=== PATIENT | female | born 1965 | race Caucasian/White ===

== ENCOUNTER → 2023-06-27 | Outpatient (CLI) | payer MEDICAID, SELFPAY ==
--- NOTE | 2023-06-27 09:47 | BI_ITS ---
MAMMOGRAPHY - BILATERAL SCREENING REASON FOR EXAM: Female, 58 years old. Routine annual screening examination. PERTINENT HISTORY: Non-contributory. History of prior left breast biopsy. TECHNIQUE: Digital bilateral breast gerard (3D mammographic acquisition) in the CC and MLO projections. 2-D mediolateral oblique (MLO) and craniocaudad (CC) views of both breasts were obtained. CAD: Full Field Digital Mammography with Computer Added Detection was performed. COMPARISON: Comparison is made with prior outside examination March 26, 2019. FINDINGS: Breast Composition: The breasts are heterogeneously dense, which may obscure small masses. There are no dominant masses or suspicious calcifications. A tissue clip marker is seen within the tiny nodular density in the medial retroareolar region of the left breast. The nodular density has decreased in size as compared to prior study. Stable small benign-appearing bilateral axillary lymph nodes. No other significant abnormalities are identified. There has been no significant change since the prior study. BI/SCRN MAMM (CAD)W/GERARD BILAT IMPRESSION: Stable bilateral screening mammogram. Yearly follow-up mammogram recommended. (A) ASSESSMENT CATEGORY: BIRADS Category 2: Benign. A letter regarding these results will be sent to the patient by the facility within 30 days. Approximately 10% of breast cancers are not detected by mammography. A normal mammogram should not delay biopsy of a clinically suspicious abnormality. [id number] Electronically Signed: Agustín Bear MD at 10:54 EDT ,
== END | disposition home or self-care (01) ==
PROVIDERS: PCP Internal Medicine; Referring Provider Internal Medicine; Visit Provider Internal Medicine
DX: Z00.00 Encounter for general adult medical examination without abnormal findings (principal); Z12.31 Encounter for screening mammogram for malignant neoplasm of breast; E55.9 Vitamin D deficiency, unspecified
CPT/HCPCS: 36415; 77063; 77067; 80053; 80061; 82306; 85025

== ENCOUNTER → 2023-06-27 | Outpatient (CLI) | payer MEDICAID, SELFPAY ==
[2023-06-27 10:29] LABS: Absolute Lymphocyte Count 2.77 X10^3/uL (0.83-4.51); Absolute Neutrophil Count 3.7 X10^3/uL (2.0-7.7); Basophil# 0.08 X10^3/uL; Basophil% 1.1 % (0-1); Eosinophil# 0.18 X10^3/uL; Eosinophils% 2.5 % (0-5); Hematocrit 44.4 % (37-47); Hemoglobin 14.7 g/dL (12.0-15.0); Lymphocyte # 2.77 X10^3/ul (0.83-4.51); Lymphocyte % 37.7 % (19-41); Mean Corp Hgb Conc 33.1 g/dL (32-36); Mean Corpuscular Hgb 30.5 pg (27.0-32.0); Mean Corpuscular Volume 92.1 fL (81-99); Mean Platelet Vol. 11.1 fl (6.2-12.0); Monocyte# 0.55 X10^3/uL; Monocyte% 7.5 % (0-10); NRBC Flagged by Analyzer 0 % (0-5); Neutrophil # 3.74 X10^3/uL (2.7-7.7); Neutrophil % 50.9 % (47-70); Platelet Count 209 K/mm3 (150-450); RBC Distribution Width CV 12.7 % (11.6-14.6); RBC Distribution Width SD 43.1 fl (35.1-43.9); Red Blood Count 4.82 M/mm3 (4.2-5.4); White Blood Count 7.3 K/mm3 (4.4-11.0)
[2023-06-27 10:49] LABS: Vitamin D,25 Hydroxy 37.9 ng/mL
[2023-06-27 11:17] LABS: AST(SGOT) 19 U/L (15-37); Alanine Aminotransfer ALT/SGPT 25 U/L (13-56); Alkaline Phosphatase 91 U/L (45-117); Anion Gap 8 (5-15); BUN 13 mg/dL (7-18); BUN/Creat Ratio 15.1 RATIO (10-20); Calcium,Total 9.5 mg/dL (8.5-10.1); Chloride 103 mmol/L (98-107); Cholesterol 259 mg/dL (200); Creatinine, Serum 0.86 mg/dL (0.55-1.02); EST Glomerular Filtration Rate 72 mL/min (>60); Est Glom Filt Rate - Afr Amer 88 mL/min (>60); Globulin 4.1 g/dL (2.2-4.2); Glucose 95 mg/dL (74-106); High Density Lipoprotein 82 mg/dL; Protein, Total 8.1 g/dL (6.4-8.2); Sodium Level 135 mmol/L (136-145); Triglycerides 110 mg/dL; Very Low Density Lipoprotein 22 mg/dL (5-40)
== END | disposition home or self-care (01) ==
PROVIDERS: PCP Internal Medicine; Referring Provider Internal Medicine; Visit Provider Internal Medicine
DX: Z00.00 Encounter for general adult medical examination without abnormal findings (principal); E55.9 Vitamin D deficiency, unspecified
CPT/HCPCS: 36415; 80053; 80061; 82306; 85025

== ENCOUNTER 2023-08-29 18:00 | Emergency (ER) | payer MEDICAID, SELFPAY ==
[2023-08-29 18:04] VITALS: BP 157/87; PULSE 91; RESP 18; TEMP 36.8; O2SAT 100; BMI 32.8
--- NOTE | 2023-08-29 18:52 | CT_ITS ---
EXAMINATION : Head CT w/out contrast HISTORY : Injury/Pain COMPARISON : None. TECHNIQUE : Multiple contiguous axial images were obtained from the skull base to the vertex without intravenous contrast. A radiation dose optimization technique was used for this scan. FINDINGS : The ventricles and sulci are normal in size. There is no evidence for acute intracranial hemorrhage, mass effect, or midline shift. There is no extra-axial fluid collection. There is normal wood-white differentiation, without CT evidence of acute ischemia or infarct. The skull base and calvarium are unremarkable. The orbits are unremarkable. The paranasal sinuses are clear. The mastoid air cells are well-aerated. The soft tissues are unremarkable. CT/Brain/Head without Contrast IMPRESSION: No acute intracranial abnormality. Electronically Signed: Darryl Srivastava MD at 19:49 EDT ,
--- NOTE | 2023-08-29 18:52 | CT_ITS ---
INDICATION: Injury/Pain EXAMINATION: CT CERVICAL SPINE - CT Spine Cervical W/O Contrast Injection TECHNIQUE: Helically acquired images were obtained of the cervical spine. 2D reformatted images were reviewed. A radiation dose optimization technique was used for this scan. IV Contrast dosage and agent: None. COMPARISON: None. FINDINGS: VERTEBRAE: No fracture or traumatic subluxation. No discrete lytic or blastic abnormality. Normal alignment. Normal craniocervical junction and cervicothoracic junction. DISCS and SPINAL CANAL: Mild to moderate multilevel degenerative disc disease and spondylosis. No critical stenosis. NECK SOFT TISSUES: No prevertebral soft tissue swelling. There is no cervical adenopathy. LUNG APICES: Clear. CT/Spine Cervical without Contras IMPRESSION: No evidence of acute cervical spinal fracture or spondylolisthesis. Mild to moderate multilevel degenerative disc disease and spondylosis. Electronically Signed: Darryl Srivastava MD at 19:52 EDT ,
[2023-08-29] MEDS: Morphine 4 MG/ML Syringe IV (19:11)
[2023-08-29] MEDS: Diphth,Pertuss(Acell),Tet Vac 0.5 ML Vial IM (19:11)
--- NOTE | 2023-08-29 19:40 | RAD_ITS ---
INDICATION: Injury/Pain EXAMINATION/TECHNIQUE: X-RAY - RIGHT XR Knee Complete 4 Views or More COMPARISON: None. FINDINGS: No acute fracture or malalignment. Mild, patellofemoral compartment predominant, tricompartmental joint space narrowing and osteophytosis. No joint effusion. The soft tissues are unremarkable. RAD/Knee 4 or More Views IMPRESSION: No acute traumatic abnormalities. Mild, patellofemoral compartment predominant, tricompartmental degenerative arthrosis of the knee. Electronically Signed: Darryl Srivastava MD at 20:07 EDT ,
--- NOTE | 2023-08-29 19:40 | RAD_ITS ---
INDICATION: Injury/Pain EXAMINATION/TECHNIQUE: X-RAY - LEFT XR Wrist Min 3 Views COMPARISON: None. FINDINGS: Questionable old fracture deformity of the distal radius. No definite acute fracture. No blastic or lytic lesions. Mild degenerative changes of the radiocarpal and first carpometacarpal joint. Mild soft tissue swelling of the wrist. RAD/Wrist min 3 Views IMPRESSION: Questionable old fracture deformity of the distal radius. No definite acute fracture. If pain persists, recommend repeat radiographs in 5-7 days or consider wrist CT. Mild degenerative changes of the radiocarpal and first carpometacarpal joint. Electronically Signed: Darryl Srivastava MD at 20:05 EDT ,
--- NOTE | 2023-08-29 19:40 | RAD_ITS ---
INDICATION: Trauma EXAMINATION/TECHNIQUE: X-RAY - XR Chest 2 Views COMPARISON: None. FINDINGS: Questionable mild bronchiectasis/bronchial wall thickening. The lungs are otherwise clear. The cardiomediastinal silhouette is unremarkable. No pleural effusion or pneumothorax. Degenerative changes of the thoracic spine. RAD/Chest PA and Lateral IMPRESSION: No acute traumatic abnormalities. Questionable mild bronchiectasis/bronchial wall thickening could represent small airways disease. Electronically Signed: Darryl Srivastava MD at 20:01 EDT ,
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
[2023-08-29 21:22] VITALS: BP 128/74; PULSE 81; RESP 16; O2SAT 99
== END 2023-08-29 21:23 | disposition home or self-care (01) ==
PROVIDERS: Emergency Provider Emergency Medicine; PCP Internal Medicine; Visit Provider Emergency Medicine
DX: S09.90XA Unspecified injury of head, initial encounter (principal); S16.1XXA Strain of muscle, fascia and tendon at neck level, initial encounter; S60.812A Abrasion of left wrist, initial encounter; F17.210 Nicotine dependence, cigarettes, uncomplicated; Y92.410 Unspecified street and highway as the place of occurrence of the external cause; S80.01XA Contusion of right knee, initial encounter; V43.52XA Car driver injured in collision with other type car in traffic accident, initial encounter; W22.10XA Striking against or struck by unspecified automobile airbag, initial encounter; Z23 Encounter for immunization
CPT/HCPCS: 70450; 71046; 72125; 73110; 73564; 90715; 96374; 99283; A4216

== ENCOUNTER → 2023-09-05 | Outpatient (CLI) | payer MEDICAID, SELFPAY ==
--- NOTE | 2023-09-05 14:16 | VDLE_ITS ---
Reason For Study: Right leg swelling RIGHT LEFT GSV is normal. CFV is compressible, spontaneous, phasic, CFV is compressible, spontaneous, phasic, competent, and demonstrates normal competent and demonstrates normal augmentation. augmentation. FV is compressible, spontaneous, phasic, competent and demonstrates normal augmentation. POP V is compressible, spontaneous, phasic, competent and demonstrates normal augmentation. T/P Trunk is compressible. PTV is compressible. RT PerV is compressible. Procedure This is a venous duplex using B-mode, color flow and spectral Doppler. Exam performed in department. A preliminary report was called and/or faxed to Dr. Tse. VL/Venous Duplex US, Unilateral Interpretation Summary Deep veins of the right lower extremity are patent and compressible segmentally . There is no evidence of right lower extremity deep vein thrombosis. The right [place] us vein appears patent and compressible segmentally. Ordering Physician: Westley Tse Referring Physician: Westley Tse Performed By: Siobhan Valladares RVT
== END | disposition home or self-care (01) ==
LOC: CVS 14:16
PROVIDERS: PCP Internal Medicine; Referring Provider Internal Medicine; Visit Provider Internal Medicine
DX: M79.89 Other specified soft tissue disorders (principal)
CPT/HCPCS: 93971

== ENCOUNTER → 2023-09-23 | Outpatient (CLI) | payer MEDICAID, SELFPAY | END | disposition home or self-care (01) | LOC: PSN 08:22 | PROVIDERS: PCP Internal Medicine; Referring Provider Internal Medicine; Visit Provider Internal Medicine | DX: R00.2 Palpitations (principal) | CPT/HCPCS: 93225; 93226 ==

== ENCOUNTER → 2023-10-09 | Outpatient (CLI) | payer MEDICAID, SELFPAY ==
[2023-10-09 12:19] LABS: Absolute Lymphocyte Count 2.61 X10^3/uL (0.83-4.51); Absolute Neutrophil Count 5.6 X10^3/uL (2.0-7.7); Basophil# 0.07 X10^3/uL; Basophil% 0.8 % (0-1); Eosinophil# 0.17 X10^3/uL; Eosinophils% 1.9 % (0-5); Hematocrit 46.8 % (37-47); Hemoglobin 14.8 g/dL (12.0-15.0); Lymphocyte # 2.61 X10^3/ul (0.83-4.51); Lymphocyte % 28.6 % (19-41); Mean Corp Hgb Conc 31.6 g/dL (32-36); Mean Corpuscular Hgb 29.5 pg (27.0-32.0); Mean Corpuscular Volume 93.2 fL (81-99); Mean Platelet Vol. 12.6 fl (6.2-12.0); Monocyte# 0.65 X10^3/uL; Monocyte% 7.1 % (0-10); NRBC Flagged by Analyzer 0 % (0-5); Neutrophil % 61.2 % (47-70); Platelet Count 243 K/mm3 (150-450); RBC Distribution Width CV 13.3 % (11.6-14.6); RBC Distribution Width SD 45.7 fl (35.1-43.9); Red Blood Count 5.02 M/mm3 (4.2-5.4); White Blood Count 9.1 K/mm3 (4.4-11.0)
[2023-10-09 12:47] LABS: AST(SGOT) 18 U/L (15-37); Alanine Aminotransfer ALT/SGPT 29 U/L (13-56); Albumin, Serum 4.2 g/dL (3.2-5.0); Alkaline Phosphatase 105 U/L (45-117); Anion Gap 3 (5-15); BUN 14 mg/dL (7-18); BUN/Creat Ratio 14.9 RATIO (10-20); Chloride 104 mmol/L (98-107); Creatinine, Serum 0.94 mg/dL (0.55-1.02); EST Glomerular Filtration Rate 65 mL/min (>60); Est Glom Filt Rate - Afr Amer 79 mL/min (>60); Globulin 4.3 g/dL (2.2-4.2); Glucose 88 mg/dL (74-106); Potassium 4.5 mmol/L (3.5-5.1); Protein, Total 8.5 g/dL (6.4-8.2); Sodium Level 136 mmol/L (136-145); T4 Free Direct 1.04 ng/dL (0.76-1.46); Thyroid Stim Hormone (TSH) 2.96 uIU/mL (0.358-3.74)
== END | disposition home or self-care (01) ==
LOC: BIMLAB 09:44
PROVIDERS: PCP Internal Medicine; Referring Provider Internal Medicine; Visit Provider Internal Medicine
DX: R00.2 Palpitations (principal); S06.0XAA Concussion with loss of consciousness status unknown, initial encounter
CPT/HCPCS: 36415; 80053; 84439; 84443; 85025

== ENCOUNTER → 2023-12-25 | Outpatient (CLI) | payer MEDICAID, SELFPAY ==
[2023-12-31 11:09] LABS: HPV APTIMA, High Risk Negative (Negative)
== END | disposition home or self-care (01) ==
LOC: LABSPEC 16:26
PROVIDERS: PCP Internal Medicine; Referring Provider Nurse Practitioner Women's Health; Visit Provider Nurse Practitioner Women's Health
DX: Z12.4 Encounter for screening for malignant neoplasm of cervix (principal)
CPT/HCPCS: 87624; 88175; G0145

== ENCOUNTER → 2024-06-29 | Outpatient (CLI) | payer MEDICAID, SELFPAY ==
[2024-06-29 12:17] LABS: Absolute Neutrophil Count 3.7 X10^3/uL (2.0-7.7); Basophil# 0.06 X10^3/uL; Basophil% 0.8 % (0-1); Eosinophil# 0.17 X10^3/uL; Eosinophils% 2.4 % (0-5); Hematocrit 44.9 % (37-47); Hemoglobin 14.7 g/dL (12.0-15.0); Lymphocyte % 36.7 % (19-41); Mean Corp Hgb Conc 32.7 g/dL (32-36); Mean Corpuscular Hgb 29.5 pg (27.0-32.0); Mean Corpuscular Volume 90.2 fL (81-99); Mean Platelet Vol. 12.5 fl (6.2-12.0); Monocyte# 0.55 X10^3/uL; Monocyte% 7.8 % (0-10); NRBC Flagged by Analyzer 0 % (0-5); Neutrophil # 3.68 X10^3/uL (2.7-7.7); Platelet Count 207 K/mm3 (150-450); RBC Distribution Width CV 13.3 % (11.6-14.6); Red Blood Count 4.98 M/mm3 (4.2-5.4); White Blood Count 7.1 K/mm3 (4.4-11.0)
[2024-06-29 12:32] LABS: AST(SGOT) 22 U/L (15-37); Alanine Aminotransfer ALT/SGPT 26 U/L (13-56); Albumin, Serum 3.9 g/dL (3.2-5.0); Alkaline Phosphatase 91 U/L (45-117); Anion Gap 5 (5-15); BUN 12 mg/dL (7-18); BUN/Creat Ratio 14.6 RATIO (10-20); Calcium,Total 9.9 mg/dL (8.5-10.1); Chloride 104 mmol/L (98-107); Cholesterol 245 mg/dL (200); Creatinine, Serum 0.82 mg/dL (0.55-1.02); EST Glomerular Filtration Rate 76 mL/min (>60); Est Glom Filt Rate - Afr Amer 92 mL/min (>60); Globulin 4.1 g/dL (2.2-4.2); Glucose 97 mg/dL (74-106); High Density Lipoprotein 74 mg/dL; Potassium 4.1 mmol/L (3.5-5.1); Sodium Level 136 mmol/L (136-145); Triglycerides 93 mg/dL; Very Low Density Lipoprotein 19 mg/dL (5-40)
== END | disposition home or self-care (01) ==
LOC: BIMLAB 09:44
PROVIDERS: PCP Internal Medicine; Referring Provider Internal Medicine; Visit Provider Internal Medicine
DX: Z00.00 Encounter for general adult medical examination without abnormal findings (principal)
CPT/HCPCS: 36415; 80053; 80061; 85025

== ENCOUNTER → 2024-07-15 | Outpatient (CLI) | payer MEDICAID, SELFPAY ==
--- NOTE | 2024-07-15 12:19 | BI_ITS ---
MAMMOGRAPHY - BILATERAL SCREENING REASON FOR EXAM: Female, 59 years old. Routine annual screening examination. PERTINENT HISTORY: Non-contributory. Prior left breast biopsy. TECHNIQUE: Digital bilateral breast gerard (3D mammographic acquisition) in the CC and MLO projections. 2-D mediolateral oblique (MLO) and craniocaudad (CC) views of both breasts were obtained. CAD: Full Field Digital Mammography with Computer Added Detection was performed. COMPARISON: Comparison is made with prior examination dated June 27, 2023. FINDINGS: Breast Composition: The breasts are heterogeneously dense, which may obscure small masses. There are no dominant masses or suspicious calcifications. Stable well-defined 4.5 mm nodule in the deep upper lateral aspect of the right breast suggestive of a small lymph node. Once again, a tissue clip marker is seen in the slightly inferior anterior medial aspect of the left breast. No other significant abnormalities are identified. There has been no significant change since the prior study. BI/SCRN MAMM (CAD)W/GERARD BILAT IMPRESSION: Stable bilateral screening mammogram. Yearly follow-up mammogram recommended. (A) ASSESSMENT CATEGORY: BIRADS Category 2: Benign. A letter regarding these results will be sent to the patient by the facility within 30 days. Approximately 10% of breast cancers are not detected by mammography. A normal mammogram should not delay biopsy of a clinically suspicious abnormality. [id number] Electronically Signed: Agustín Bear MD at 15:08 EDT ,
--- NOTE | 2024-07-15 12:19 | BD_ITS ---
STUDY: DUAL ENERGY X-RAY ABSORPTIOMETRY / DXA REASON FOR EXAM: Female, 59 years old. Post Menopausal TECHNIQUE: Bone Mineral Density (BMD) measurements of lumbar spine and bilateral hips were obtained. COMPARISON: None. FINDINGS: Lumbar Spine (L1-L4): g/cm2 (1.159) / T-score (1.0) / Z-score (2.2) Findings are suggestive of normal bone density with a low fracture risk. Left Femur Total: g/cm2 (1.084) / T-score (1.2) / Z-score (2.0) Left Femoral Neck: g/cm2 (0.836) / T-score (-0.1) / Z-score (1.0) Right Femur Total: g/cm2 (1.066) / T-score (1.0) / Z-score (1.8) Right Femoral Neck: g/cm2 (0.815) / T-score (-0.3) / Z-score (0.8) BD/Dexa Bone Density Study IMPRESSION: The patient is considered normal as outlined below according to World Phil Organization (WHO) criteria with a low fracture risk. Reference Information: The T-score is the number of standard deviations above or below the standard which is normal for young adults at their peak bone mineral density. The World Health Organization (WHO) interprets the T-scores as follows: Above -1 Normal bone density Between -1 and -2.5 Osteopenia Equal to / or below -2.5 Osteoporosis As a practical clinical guideline, osteopenia may be graded as follows: Mild -1 through -1.5 Moderate -1.6 through -2.0 Severe -2.1 through -2.4 The Z-score is the number of standard deviations above or below age-matched controls. A Z-score of less than -1.5 would be considered abnormal. References: 1. NIH Osteoporosis and Related Bone Diseases www osteo.org 2. International Society for Clinical Densitometry www iscd.org 3. National Osteoporosis Foundation www nof.org Electronically Signed: Agustín Bear MD at 11:22 EDT ,
== END | disposition home or self-care (01) ==
LOC: OPBD 12:19
PROVIDERS: PCP Internal Medicine; Referring Provider Internal Medicine; Visit Provider Internal Medicine
DX: Z12.31 Encounter for screening mammogram for malignant neoplasm of breast (principal); Z78.0 Asymptomatic menopausal state
CPT/HCPCS: 77063; 77067; 77080

== ENCOUNTER 2024-08-27 09:19 | Day surgery (SDC) | payer MEDICAID, SELFPAY ==
--- NOTE | 2024-08-27 09:32 | PRE.ANES_ITS ---
ASA Classification* ASA Classification ASA Classification: 2 Assessment & Plan Anesthesia* Anesthesia Assessment Anesthesia Assessment: Discussed sedation and/or anesthesia options, risks, benefits, and alternatives with patient/parents/legal guardian/POA. Questions invited. The patient/parents/legal guardian/POA seems to understand and agrees to proceed with anesthesia plan. Reviewed the physical assessment, medical history, allergy history and patient home medications list prior to surgery/procedure/anesthetic and documented any changes. Performed airway and anesthesia risk assessments. Anesthesia Type Anesthesia Type: MAC (see written pre anesthesia record for full assessment) Anesthesia Focused Assessment* Airway Assessment Mouth opens: >3 cm Mallampati Score: II Focused Labs Anesthesia Preop lab: CBC WBC 7.1 K/mm3 (4.4-11.0) 06/29/24 09:44 RBC 4.98 M/mm3 (4.2-5.4) 06/29/24 09:44 Hgb 14.7 g/dL (12.0-15.0) 06/29/24 09:44 Hct 44.9 % (37-47) 06/29/24 09:44 Plt Count 207 K/mm3 (150-450) 06/29/24 09:44 CHEMISTRY Potassium 4.1 mmol/L (3.5-5.1) 06/29/24 09:44 Sodium 136 mmol/L (136-145) 06/29/24 09:44 BUN 12 mg/dL (7-18) 06/29/24 09:44 Creatinine 0.82 mg/dL (0.55-1.02) 06/29/24 09:44 Glucose 97 mg/dL (74-106) 06/29/24 09:44 TSH 2.96 uIU/mL (0.358-3.74) 10/09/23 09:44 COAG Pre-Assessment Diagnosis/Proposed Procedure Planned Operative Procedure(s): COLONOSCOPY-OA Anesthesia History Anesthesia History - registered occupational therapist: Anesthesia History - registered occupational therapist Hx Hospitalization No 08/24/24 10:36 Any Problems With Anesthesia Yes: N&V 08/24/24 10:36 Cholinesterase deficiency No 08/24/24 10:36 You/Your Family Experience No 08/24/24 10:36 fever (hyperthermia) with Relationship Recent Exposure to Contagious Disease Does patient have nerve No 08/24/24 10:36 stimulator Patient instructed to have device shut off --Does patient have Pacemaker or ICD? When Was Last Pacemaker Check QUESTION #4 FULL TEXT: You/Your Family Experience fever (hyperthermia) with Anesthesia Last Oral Intake Last Oral intake: Last Oral Intake NPO since Meds taken in AM with sips of water? Meds patient instructed to take am of surgery PONV PONV - registered occupational therapist: PONV - registered occupational therapist Female Yes 08/24/24 10:36 HX of Motion Sickness No 08/24/24 10:36 HX of N/V After Surgery No 08/24/24 10:36 Non-Smoker Yes 08/24/24 10:36 Duration of Surgery greater No 08/24/24 10:36 than 60 minutes Number of Risk Factors 2 08/24/24 10:36 PONV Score Moderate Risk 08/24/24 10:36 Height & Weight Height & Weight: Anesthesia: Height & Weight Height 5 ft 3 in 07/17/24 16:16 Respiratory Assessment Respiratory Assessment - registered occupational therapist: Respiratory Tract Infection Hx - registered occupational therapist Hx Respiratory Tract Infection No 08/24/24 10:36 STOP Sleep Apnea STOP Sleep Apnea - registered occupational therapist: STOP Sleep Apnea - registered occupational therapist Hx Hypertension No 08/24/24 10:36 Hx Sleep Apnea No 08/24/24 10:36 CPAP BIPAP Do you snore loudly (louder No 08/24/24 10:36 than talking or can be heard Do you often feel tired/ No 08/24/24 10:36 fatigued/ sleepy during daytime? Has anyone observed you stop No 08/24/24 10:36 breathing during sleep? STOP Results Negative 08/24/24 10:36 QUESTION #5 FULL TEXT : Do you snore loudly (louder than talking or can be heard through closed doors)? Tobacco Use History Tobacco Use History - registered occupational therapist: Tobacco Use History - registered occupational therapist Tobacco Use Smoking Status Current every day smoker 08/24/24 10:36 Hx Tobacco Use Yes 08/24/24 10:36 Years Smoking Packs Smoked per Day Smoking Cessation Date was within the last 15 years Hx Smoking Cessation Date Hx Smoking Cessation Counseling Hematologic Medial History Hematologic Hx - registered occupational therapist: Hematologic Medical Hx - nurse auditor Hx of Blood Transfusion No 08/24/24 10:36 Hx of Transfusion in last 3 No 08/24/24 10:36 Months Date of Last Transfusion (if within last 3 months) Ever experience any problems No 08/24/24 10:36 with transfusion(s)? Specify any problems Hx of Preganancy in last 3 No 08/24/24 10:36 Months Nurse Filling Out Transfusion VCHRISTIN 08/24/24 10:36 & Questions: Date: 08/24/24 08/24/24 10:36 Time: 10:37 08/24/24 10:36 Patient unable to answer at this time (ie. confused, unrespo /Reproduction History /Reproductive History - registered occupational therapist: /Reproductive Hx- registered occupational therapist Hx Now No 08/24/24 10:36 Gestational Age (in weeks): EDC: Hx Hx Para Hx Section SAB No 08/24/24 10:36 Active Medications Active Medications: Current Medications Generic Name Dose Route Start Last Admin Trade Name Freq PRN Reason Stop Dose Admin Lactated Ringer's 1,000 mls @ 15 mls/hr 08/27/24 09:30 IV .Q48H CLEMENTINA PFSH Medical History Wears glasses Post-menopausal Arthritis Injury of head and neck History of ulceration Smoker History of Holter monitoring History of echocardiogram History of irregular heartbeat Family history of colon cancer in mother Colon cancer screening Obesity (BMI 30-39.9) Preventative health care Postconcussion syndrome Tobacco abuse counseling Vitamin D deficiency Vitamin deficiency Polycystic disease, ovaries Pancreatitis Hormone deficiency History of cataract Concussion Generalized body aches Palpitations PTSD (post-traumatic stress disorder) Adjustment disorder with anxiety Right leg swelling Normal hysteroscopy Home Medications ?Medication ?Instructions ?Recorded ?Last Taken ?Type multivitamin 1 tab PO DAILY 06/19/23 Unknown History magnesium chloride 64 mg 64 mg PO DAILY 06/29/24 Unknown History (magnesium chloride) tablet,delayed release Lactobacillus acidophilus 10 100 mmu cells PO DAILY 08/24/24 Unknown History billion cell capsule (NewFlora) vitamin B complex (Balanced B-50 1 tab PO DAILY 08/24/24 Unknown History tablet) Allergy/AdvReac Type Severity Reaction Status Date / Time Sulfa (Sulfonamide Allergy Rash Verified 08/24/24 10:27 Antibiotics) adhesive AdvReac Skin Verified 08/24/24 10:27 irritation and redness Family History Mother Bowel disease Osteoporosis Skin cancer Thyroid disorder Colon cancer Son Bowel disease Father Diabetes Brother Diabetes Other Autoimmune disease Surgical History History of esophagogastroduodenoscopy (EGD) Hx of cataract extraction History of surgery on wrist Hx of knee surgery H/O cervical biopsy History of breast biopsy History of cholecystectomy History of History of laparoscopy History of D&C History of appendectomy History of breast lump removal Hx of cholecystectomy History of appendectomy Social History adopted: No household members: spouse current occupational status: retired pets and animals: No Smoking Status: Current every day smoker tobacco type: cigarettes alcohol intake: current alcohol intake frequency: holidays/special occasions only substance use type: does not use caffeine: Yes (6) Type: coffee frequency: 3-4 times per week seatbelt use: always do you feel safe at home: Yes additional social history: - Patrick- Retired Review of Systems (Anesthesia) ROS Narrative System reviewed and no additional complaints, except as documented.
[2024-08-27] MEDS: Lactated Ringers 1,000 ML 15 ML IV (09:53)
[2024-08-27 09:54] VITALS: BP 124/90; PULSE 87; RESP 18; TEMP 36.2; O2SAT 100; BMI 32.9
--- NOTE | 2024-08-27 10:44 | H&P.OPEN ---
HPI - General HPI Narrative ALEKSANDAR CHAN, is a 59 F who presents for screening colonoscopy. She has never had a colonoscopy in the past. She denies abdominal pain or blood in the stool. She does have family history in her mother under age 60 of colon cancer. [facility] Medical History Wears glasses Post-menopausal Arthritis Injury of head and neck History of ulceration Smoker History of Holter monitoring History of echocardiogram History of irregular heartbeat Family history of colon cancer in mother Colon cancer screening Obesity (BMI 30-39.9) Preventative health care Postconcussion syndrome Tobacco abuse counseling Vitamin D deficiency Vitamin deficiency Polycystic disease, ovaries Pancreatitis Hormone deficiency History of cataract Concussion Generalized body aches Palpitations PTSD (post-traumatic stress disorder) Adjustment disorder with anxiety Right leg swelling Normal hysteroscopy Home Medications ?Medication ?Instructions ?Recorded ?Last Taken ?Type multivitamin 1 tab PO DAILY 06/19/23 08/26/24 History magnesium chloride 64 mg 64 mg PO DAILY 06/29/24 08/26/24 History (magnesium chloride) tablet,delayed release Lactobacillus acidophilus 10 100 mmu cells PO DAILY 08/24/24 08/26/24 History billion cell capsule (NewFlora) vitamin B complex (Balanced B-50 1 tab PO DAILY 08/24/24 08/26/24 History tablet) Allergy/AdvReac Type Severity Reaction Status Date / Time Sulfa (Sulfonamide Allergy Rash Verified 08/27/24 09:52 Antibiotics) adhesive AdvReac Skin Verified 08/27/24 09:52 irritation and redness Family History Mother Bowel disease Osteoporosis Skin cancer Thyroid disorder Colon cancer Son Bowel disease Father Diabetes Brother Diabetes Other Autoimmune disease Surgical History History of esophagogastroduodenoscopy (EGD) Hx of cataract extraction History of surgery on wrist Hx of knee surgery H/O cervical biopsy History of breast biopsy History of cholecystectomy History of History of laparoscopy History of D&C History of appendectomy History of breast lump removal Hx of cholecystectomy History of appendectomy Social History adopted: No household members: spouse current occupational status: retired pets and animals: No Smoking Status: Current every day smoker tobacco type: cigarettes alcohol intake: current alcohol intake frequency: holidays/special occasions only substance use type: does not use caffeine: Yes (6) Type: coffee frequency: 3-4 times per week seatbelt use: always do you feel safe at home: Yes additional social history: - Patrick- Retired Past Medical/Surgical History Planned Operation Planned Operative Procedure(s): COLONOSCOPY-OA Previous Hospitalizations/Surgeries HX Hospitalizations: No Any Problems With Anesthesia: Yes (N&V) You/Your Family Experience Fever (Hyperthermia) With Anes: No Cholinesterase deficiency: No Cardiovascular Hx Hypertension: No Respiratory Hx Sleep Apnea: No Hx Respiratory Tract Infection/Cold (presently): No Do You Snore Loudly (louder than talking or can be heard): No Do You Often Feel Tired/ Fatigued/ Sleepy Dring Daytime?: No Has Anyone Observed You Stop Breathing During Sleep?: No Result (for STOP score): Negative Smoking Status: Current every day smoker Neurological Does patient have nerve stimulator: No Reproduction : No Miscellaneous Recent Exposure to Contagious Disease: No Allergies Sulfa (Sulfonamide Antibiotics) Allergy (Verified 08/27/24 09:52) Rash adhesive Adverse Reaction (Verified 08/27/24 09:52) Skin irritation and redness Discharge Is Pt Admitted From a Group Home, or a Fdc: No After D/C, Where Do you Plan to Go: Return Home Vital Signs Vital Signs Vital Signs: 08/27/24 09:54 08/27/24 09:54 Temperature 97.1 F L Temperature Source Temporal Pulse Rate 87 Respiratory Rate 18 Respiratory Pattern Normal Blood Pressure 124/90 H Blood Pressure Mean 101 Blood Pressure Source Monitor Blood Pressure Position Semi-Fowlers Blood Pressure Location Right Arm Pulse Ox 100 Oxygen Delivery Method Room Air Weight Weight: 186 lb Body Mass Index (BMI) 32.9 Physical Exam Const alert and oriented x3 HEENT normocephalic Eyes PERRL Resp normal respiratory effort and normal air movement Cardio regular rate and regular rhythm GI soft to palpation, non-tender and non-distended Extremity normal to inspection Assessment & Plan Assessment/Plan (1) Colon cancer screening: PLAN: Given the family history of colon cancer would recommend repeat in 5 years regardless of the findings. I explained endoscopy in detail to the patient. I explained the risks including but not limited to stroke or heart attack with anesthesia, perforation of the GI tract, bleeding, infection. I explained that any of these could necessitate further emergency surgery. The patient understands and all questions were answered sufficiently. The patient wishes to proceed with procedure. Jake Abel MD Pager: [facility] [address] [place] [address] [address] [place] [address] Office: Surgery Risks - Colonoscopy Risks Include but are not Limited To: Risks include but are not limited to: Bleeding, perforation requiring further surgery, inability to complete colonoscopy requiring barium enema.
[2024-08-27 11:25] VITALS: BP 124/90; BP 133/92; PULSE 86; RESP 16; TEMP 36.3; O2SAT 100
--- NOTE | 2024-08-27 11:27 | OP.CCLET_ITS ---
08/27/2024 Westley Tse MD [address] [place] [address] [place] [address] Re : Colonoscopy procedure for Jessica Mejia Dear Dr. Tse This procedure was performed on August. My impressions and recommendations are as follows: Impressions : - The entire examined colon is normal on direct and retroflexion views. - No specimens collected. Recommendations : - Discharge patient to home. - Resume previous diet. - Continue present medications. - Repeat colonoscopy in 6 months because the examination was incomplete. - Return to GI office at appointment to be scheduled. My findings are described in the full procedure note, which is enclosed. If I can be of further assistance, please feel free to contact me at Doctor phone number(s): , Work: . Sincerely, Jake Abel MD 08/27/2024 11:27:11 AM This report has been signed electronically.
--- NOTE | 2024-08-27 11:27 | OP.COLON_ITS ---
Patient Name: Jessica Mejia Procedure Date: 08/27/2024 10:50 AM Date of : 1965 Age: 59 Procedure: Colonoscopy Indications: Screening in patient at increased risk: Family history of 1st-degree relative with colorectal cancer before age 60 years Providers: Jake Abel MD Referring MD: Westley Tse MD Medicines: Propofol per Anesthesia Patient Profile: This is a 59 year old female. Refer to note in patient chart for documentation of history and physical. Last Colonoscopy: none. The patient's first colonoscopy is today. Complications: No immediate complications. Procedure: Pre-Anesthesia Assessment: - Prior to the procedure, a History and Physical was performed, and patient medications and allergies were reviewed. The patient's tolerance of previous anesthesia was also reviewed. The risks and benefits of the procedure and the sedation options and risks were discussed with the patient. All questions were answered, and informed consent was obtained. Prior Anticoagulants: The patient has taken no anticoagulant or antiplatelet agents. After reviewing the risks and benefits, the patient was deemed in satisfactory condition to undergo the procedure. After I obtained informed consent, the scope was passed under direct vision. Throughout the procedure, the patient's blood pressure, pulse, and oxygen saturations were monitored continuously. The pediatric colonoscope was introduced through the anus and advanced to the transverse colon. The patient tolerated the procedure well. The quality of the bowel preparation was good. The ileocecal valve, appendiceal orifice, and rectum were photographed. The colonoscopy was extremely difficult due to a tortuous colon. Successful completion of the procedure was aided by using manual pressure. Scope In: 10:57:15 AM Scope Out: 11:17:36 AM Total Procedure Duration Time 0 hours 20 minutes 21 seconds Findings: The entire examined colon appeared normal on direct and retroflexion views. Impression: - The entire examined colon is normal on direct and retroflexion views. - No specimens collected. Recommendation: - Discharge patient to home. - Resume previous diet. - Continue present medications. - Repeat colonoscopy in 6 months because the examination was incomplete. - Return to GI office at appointment to be scheduled. Procedure Code(s): --- Professional --- 52735, 53, Colonoscopy, flexible; diagnostic, including collection of specimen(s) by brushing or washing, when performed (separate procedure) Diagnosis Code(s): --- Professional --- Z80.0, Family history of malignant neoplasm of digestive organs CPT copyright 2021 [employer]. All rights reserved. The codes documented in this report are preliminary and upon business rules analyst review may be revised to meet current compliance requirements. Jake Abel MD 08/27/2024 11:27:11 AM This report has been signed electronically. Number of Addenda: 0 Note Initiated On: 08/27/2024 10:50 AM
--- NOTE | 2024-08-27 11:28 | PCM.POST.ANE ---
Anesthesia: Postop Eval I Current Vital Signs Temperature: 97.3 F Pulse Rate: 87 Blood Pressure: 133/92 Respiratory Rate: 16 Pulse Ox: 98 Oxygen Delivery Method: Room Air Assessment Airway patent: Yes Spontaneous unlabored respirations: Yes Mental status: Awake and Calm nausea: No Vomiting: No Anesthesia Complication: No Fluid Hydration Crystalloid volume administer (ml): 500 Total IV fluid infused: 500 Progress Note Anesthesia document: Postop Eval 1 completed: Yes
[2024-08-27 11:30] VITALS: BP 106/69; BP 124/90; BP 133/92; PULSE 75; PULSE 87; RESP 16; TEMP 36.3; O2SAT 98
[2024-08-27 11:35] VITALS: BP 124/90; BP 96/76; PULSE 80; RESP 16; TEMP 36.3; O2SAT 98
[2024-08-27 11:49] VITALS: BP 124/90
--- NOTE | 2024-08-27 14:27 | PCM.POSTANE2 ---
Anesthesia Postop Eval I Sum Postop Eval Completion status Anesthesia document: Postop Eval 1 completed: Yes Anesthesia Postop Eval I Summary Anesthesia Postop Eval I Summary: Anesthesia Postop Eval I: Assessment Summary Airway patent Yes 08/27/24 11:30 [email or web address] Spontaneous unlabored Yes 08/27/24 11:30 [email or web address] respirations Mental status Awake,Calm 08/27/24 11:30 [email or web address] nausea No 08/27/24 11:30 [email or web address] Vomiting No 08/27/24 11:30 [email or web address] Anesthesia Postop Eval I: Fluid Summary Crystalloid volume administer 500 08/27/24 11:30 [email or web address] (ml) Colloids volume administered ( ml) Blood Product volume administered (ml) Total IV fluid infused 500 08/27/24 11:30 [email or web address] Anesthesia Postop Eval I: Summary Notes Anesthesia Complication No 08/27/24 11:30 [email or web address] Anesthesia Complication Comment: Post-operative progress note Anesthesia: Postop Eval II Evaluation Mental status: Awake and Calm Pain Level: 0 nausea: No Vomiting: No Complications Anesthesia Complication: No
== END 2024-08-27 11:56 | disposition home or self-care (01) ==
LOC: EN 09:23 → AC 09:23
PROVIDERS: PCP Internal Medicine; Referring Provider Internal Medicine; Visit Provider Surgery
PROC: 0DJD8ZZ Inspection of Lower Intestinal Tract, Via Natural or Artificial Opening Endoscopic (ICD-10-PCS; CPT 45378; principal; 2024-08-27 10:25)
DX: Z12.11 Encounter for screening for malignant neoplasm of colon (principal); Z80.8 Family history of malignant neoplasm of other organs or systems; Z80.0 Family history of malignant neoplasm of digestive organs; F17.200 Nicotine dependence, unspecified, uncomplicated; Z90.49 Acquired absence of other specified parts of digestive tract
CPT/HCPCS: 45378; J7120; J2405

== ENCOUNTER 2024-09-23 10:54 | Day surgery (SDC) | payer MEDICAID, SELFPAY ==
[2024-09-23] VITALS (8 sets, daily range): BP systolic 83–127; BP diastolic 59–94; PULSE 64–89; RESP 16–17; TEMP 35.9–36.4; O2SAT 93–98; BMI 32.4
--- NOTE | 2024-09-23 11:18 | PCM.PRE.AN2 ---
ASA Classification* ASA Classification ASA Classification: 2 Assessment & Plan Anesthesia* Anesthesia Assessment Anesthesia Assessment: Discussed sedation and/or anesthesia options, risks, benefits, and alternatives with patient/parents/legal guardian/POA. Questions invited. The patient/parents/legal guardian/POA seems to understand and agrees to proceed with anesthesia plan. Reviewed the physical assessment, medical history, allergy history and patient home medications list prior to surgery/procedure/anesthetic and documented any changes. Performed airway and anesthesia risk assessments. Anesthesia Type Anesthesia Type: MAC History Source History Obtained from:: Patient and Chart Anesthesia Focused Assessment* Temperature: 97.6 F Pulse Rate: 89 Blood Pressure: 127/94 Respiratory Rate: 17 Pulse Ox: 98 Oxygen Delivery Method: Room Air Airway Assessment Mouth opens: >3 cm Mallampati Score: III Teeth Condition: Intact Neck Range of motion (ROM): Full ROM Focused Labs Anesthesia Preop lab: CBC WBC 7.1 K/mm3 (4.4-11.0) 06/29/24 09:44 RBC 4.98 M/mm3 (4.2-5.4) 06/29/24 09:44 Hgb 14.7 g/dL (12.0-15.0) 06/29/24 09:44 Hct 44.9 % (37-47) 06/29/24 09:44 Plt Count 207 K/mm3 (150-450) 06/29/24 09:44 CHEMISTRY Potassium 4.1 mmol/L (3.5-5.1) 06/29/24 09:44 Sodium 136 mmol/L (136-145) 06/29/24 09:44 BUN 12 mg/dL (7-18) 06/29/24 09:44 Creatinine 0.82 mg/dL (0.55-1.02) 06/29/24 09:44 Glucose 97 mg/dL (74-106) 06/29/24 09:44 TSH 2.96 uIU/mL (0.358-3.74) 10/09/23 09:44 COAG Pre-Assessment Diagnosis/Proposed Procedure Planned Operative Procedure(s): COLONOSCOPY Anesthesia History Anesthesia History - finance insurance manager: Anesthesia History - finance insurance manager Hx Hospitalization No 09/18/24 13:35 Any Problems With Anesthesia Yes: N&V 09/18/24 13:35 Cholinesterase deficiency No 09/18/24 13:35 You/Your Family Experience No 09/18/24 13:35 fever (hyperthermia) with Relationship Recent Exposure to Contagious No 09/23/24 11:11 Disease Does patient have nerve No 09/18/24 13:35 stimulator Patient instructed to have device shut off --Does patient have Pacemaker No 09/23/24 11:11 or ICD? When Was Last Pacemaker Check QUESTION #4 FULL TEXT: You/Your Family Experience fever (hyperthermia) with Anesthesia Last Oral Intake Last Oral intake: Last Oral Intake NPO since 08:09/23/24 11:11 Meds taken in AM with sips of No 09/23/24 11:11 water? Meds patient instructed to take am of surgery Any additional information?: Yes NPO since: : (Patient had black coffee at 8:30 AM) PONV PONV - finance insurance manager: PONV - finance insurance manager Female Yes 09/18/24 13:35 HX of Motion Sickness No 09/18/24 13:35 HX of N/V After Surgery No 09/18/24 13:35 Non-Smoker No 09/18/24 13:35 Duration of Surgery greater No 09/18/24 13:35 than 60 minutes Number of Risk Factors 1 09/18/24 13:35 PONV Score Low Risk 09/18/24 13:35 Height & Weight Height & Weight: Anesthesia: Height & Weight Height 5 ft 3 in 09/23/24 11:11 Weight: 83 kg 09/23/24 11:11 Body Mass Index (BMI) 32.4 09/23/24 11:11 Respiratory Assessment Respiratory Assessment - finance insurance manager: Respiratory Tract Infection Hx - finance insurance manager Hx Respiratory Tract Infection No 09/18/24 13:35 STOP Sleep Apnea STOP Sleep Apnea - finance insurance manager: STOP Sleep Apnea - finance insurance manager Hx Hypertension No 09/18/24 13:35 Hx Sleep Apnea No 09/18/24 13:35 CPAP BIPAP Do you snore loudly (louder No 09/18/24 13:35 than talking or can be heard Do you often feel tired/ No 09/18/24 13:35 fatigued/ sleepy during daytime? Has anyone observed you stop No 09/18/24 13:35 breathing during sleep? STOP Results Negative 09/18/24 13:35 QUESTION #5 FULL TEXT : Do you snore loudly (louder than talking or can be heard through closed doors)? Tobacco Use History Tobacco Use History - finance insurance manager: Tobacco Use History - finance insurance manager Tobacco Use Smoking Status Current every day smoker 09/18/24 13:35 Hx Tobacco Use Yes 09/18/24 13:35 Years Smoking Packs Smoked per Day Smoking Cessation Date was within the last 15 years Hx Smoking Cessation Date Hx Smoking Cessation Counseling Any additional information?: Yes Smoking Status: Current every day smoker (Patient smoked today.) Hematologic Medial History Hematologic Hx - finance insurance manager: Hematologic Medical Hx - respiratory therapy manager Hx of Blood Transfusion No 09/18/24 13:35 Hx of Transfusion in last 3 No 09/18/24 13:35 Months Date of Last Transfusion (if within last 3 months) Ever experience any problems No 09/18/24 13:35 with transfusion(s)? Specify any problems Hx of Preganancy in last 3 No 09/18/24 13:35 Months Nurse Filling Out Transfusion VCHRISTIN 09/18/24 13:35 & Questions: Date: 09/18/24 09/18/24 13:35 Time: 13:36 09/18/24 13:35 Patient unable to answer at this time (ie. confused, unrespo /Reproduction History /Reproductive History - finance insurance manager: /Reproductive Hx- finance insurance manager Hx Now No 09/18/24 13:35 Gestational Age (in weeks): EDC: Hx Hx Para Hx Section SAB No 09/18/24 13:35 [facility] Medical History Tortuous colon Wears glasses Post-menopausal Arthritis Injury of head and neck History of ulceration Smoker History of Holter monitoring History of echocardiogram History of irregular heartbeat Family history of colon cancer in mother Colon cancer screening Obesity (BMI 30-39.9) Preventative health care Postconcussion syndrome Tobacco abuse counseling Vitamin D deficiency Vitamin deficiency Polycystic disease, ovaries Pancreatitis Hormone deficiency History of cataract Concussion Generalized body aches Palpitations PTSD (post-traumatic stress disorder) Adjustment disorder with anxiety Right leg swelling Normal hysteroscopy Home Medications ?Medication ?Instructions ?Recorded ?Last Taken ?Type multivitamin 1 tab PO DAILY 06/19/23 09/22/24 History magnesium chloride 64 mg 64 mg PO DAILY 06/29/24 09/22/24 History (magnesium chloride) tablet,delayed release Lactobacillus acidophilus 10 100 mmu cells PO DAILY 08/24/24 09/22/24 History billion cell capsule (NewFlora) vitamin B complex (Balanced B-50 1 tab PO DAILY 08/24/24 09/22/24 History tablet) Allergy/AdvReac Type Severity Reaction Status Date / Time Sulfa (Sulfonamide Allergy Rash Verified 09/23/24 11:10 Antibiotics) adhesive AdvReac Skin Verified 09/23/24 11:10 irritation and redness Family History Mother Bowel disease Osteoporosis Skin cancer Thyroid disorder Colon cancer Son Bowel disease Father Diabetes Brother Diabetes Other Autoimmune disease Surgical History Hx of colonoscopy History of esophagogastroduodenoscopy (EGD) Hx of cataract extraction History of surgery on wrist Hx of knee surgery H/O cervical biopsy History of breast biopsy History of cholecystectomy History of History of laparoscopy History of D&C History of appendectomy History of breast lump removal Hx of cholecystectomy History of appendectomy Social History adopted: No household members: spouse current occupational status: retired pets and animals: No Smoking Status: Current every day smoker tobacco type: cigarettes alcohol intake: current alcohol intake frequency: holidays/special occasions only substance use type: does not use caffeine: Yes (6) Type: coffee frequency: 3-4 times per week seatbelt use: always do you feel safe at home: Yes additional social history: - Patrick- Retired Review of Systems (Anesthesia) ROS Narrative System reviewed and no additional complaints, except as documented.
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
--- NOTE | 2024-09-23 12:00 | COLBX_PTH ---
PATHOLOGY RESULTS PATIENT: ALEKSANDAR CHAN LOC: EN U#:[id number] AGE/SX: 59/F ROOM: RE09/23/[address]: Dr. Rupert Garay DO : 1965 BED: DIS: 09/23/2024 SPEC #: [id number] RECD: 09/24/24 07:31 STATUS: RODNEY GRAVES #: [id number] MINA: 09/23/24 12:[address]: Rupert Garay DEPT: SURGICAL PATHOLOGY RECD BY: Denae Vela ENTERED: 09/24/24 11:37 SP TYPE: COLON BX KAYLA DR: Dr. Westley Tse MD Tissues: Ascending colon Procedures: Surgery Specimen Level IV HEADER OPERATION: Colonoscopy, polypectomy PRE-OP DIAGNOSIS: Family history of colon cancer in mother TISSUE SUBMITTED: Ascending colon MICROSCOPIC DIAGNOSIS Ascending colon polyp, polypectomy: Fragments of hyperplastic polyp with cautery artifacts. 09/25/2024 MICROSCOPIC DESCRIPTION Slides are reviewed. GROSS DESCRIPTION Received in fixative is one container labeled with the patient's name and designated Ascending colon polyp. The specimen consists of multiple irregular fragments of light henson soft tissue that in aggregate measure 1.0 x 0.2 x 0.1 cm. The specimen is totally submitted in one cassette. 09/24/2024 TC:1 CPT:25267
--- NOTE | 2024-09-23 12:22 | HP.PCM_ITS ---
HPI - General General Date of Admission: 09/23/24 Date of Service: 09/23/24 Chief Complaint: Screening colonoscopy HPI Narrative ALEKSANDAR CHAN, is a 59 F who presents today for repeat colonoscopy. She had an attempted colonoscopy several months ago but it was unsuccessful. She is not having abdominal pain, cramping denies any chest pain or shortness of breath. [facility] Medical History (Updated 09/23/24 @ 12:[address] Emery Friend, DO) Tortuous colon Wears glasses Post-menopausal Arthritis Injury of head and neck History of ulceration Smoker History of Holter monitoring History of echocardiogram History of irregular heartbeat Family history of colon cancer in mother Colon cancer screening Obesity (BMI 30-39.9) Preventative health care Postconcussion syndrome Tobacco abuse counseling Vitamin D deficiency Vitamin deficiency Polycystic disease, ovaries Pancreatitis Hormone deficiency History of cataract Concussion Generalized body aches Palpitations PTSD (post-traumatic stress disorder) Adjustment disorder with anxiety Right leg swelling Normal hysteroscopy Home Medications ?Medication ?Instructions ?Recorded ?Last Taken ?Type multivitamin 1 tab PO DAILY 06/19/23 09/22/24 History magnesium chloride 64 mg 64 mg PO DAILY 06/29/24 09/22/24 History (magnesium chloride) tablet,delayed release Lactobacillus acidophilus 10 100 mmu cells PO DAILY 08/24/24 09/22/24 History billion cell capsule (NewFlora) vitamin B complex (Balanced B-50 1 tab PO DAILY 08/24/24 09/22/24 History tablet) Allergy/AdvReac Type Severity Reaction Status Date / Time Sulfa (Sulfonamide Allergy Rash Verified 09/23/24 11:10 Antibiotics) adhesive AdvReac Skin Verified 09/23/24 11:10 irritation and redness Family History Mother Bowel disease Osteoporosis Skin cancer Thyroid disorder Colon cancer Son Bowel disease Father Diabetes Brother Diabetes Other Autoimmune disease Surgical History Hx of colonoscopy History of esophagogastroduodenoscopy (EGD) Hx of cataract extraction History of surgery on wrist Hx of knee surgery H/O cervical biopsy History of breast biopsy History of cholecystectomy History of History of laparoscopy History of D&C History of appendectomy History of breast lump removal Hx of cholecystectomy History of appendectomy Social History adopted: No household members: spouse current occupational status: retired pets and animals: No Smoking Status: Current every day smoker (Patient smoked today.) tobacco type: cigarettes alcohol intake: current alcohol intake frequency: holidays/special occasions only substance use type: does not use caffeine: Yes (6) Type: coffee frequency: 3-4 times per week seatbelt use: always do you feel safe at home: Yes additional social history: - Patrick- Retired ROS Review of Systems ROS Unobtainable: other Constitutional Constitutional: Denies fatigue, fever(s), poor appetite, weight gain or weight loss ENT HEENT: Denies mouth lesions Cardiovascular Cardiovascular: Denies abdominal bloating, abdominal edema or abdominal pain Respiratory/Chest Respiratory/Chest: Denies change in mental status, change in phlegm color, chest congestion or chest tightness Gastrointestinal Gastrointestinal: Denies belching, bloating, change in bowel habits, change in stool character, chewing difficulty, coffee ground emesis, constipation, c ramping, diarrhea, dyspepsia, dysphagia, early satiety, excessive flatus, fecal incontinence, heartburn, hematemesis, hematochezia, hemorrhoids, loose stools, melena, nausea, odynophagia, rectal bleeding, tenesmus, vomiting or weight changes Genitourinary Genitourinary: Denies abdominal discomfort, burning urination or itching Musculoskeletal Musculoskeletal: Reports as per HPI; Denies muscle weakness or myalgias Integumentary Integumentary: Denies jaundice Neurologic Neurologic: Denies lack of coordination or weakness Psychiatric Psychiatric: Denies confusion, depression, memory loss, mood swings, paranoia or suicidal ideation Endocrine Endocrinology: Denies systems reviewed and no addt'l complaints, except as documented Hematologic/Lymphatic Hematologic/Lymphatic: Denies anemia, easy bleeding, easy bruising or lymphadenopathy Allergic/Immunologic Allergic/Immunologic: Denies systems reviewed and no addt'l complaints, except as documented Vital Signs Vital Signs Vital Signs: 09/23/24 11:11 09/23/24 11:11 09/23/24 11:24 Temperature 97.6 F L 97.6 F L Temperature Source Temporal Pulse Rate 89 89 Respiratory Rate 17 17 Respiratory Pattern Normal Blood Pressure 127/94 H 127/94 H Blood Pressure Mean 105 Blood Pressure Source Monitor Blood Pressure Position Semi-Fowlers Blood Pressure Location Right Arm Pulse Ox 98 98 Oxygen Delivery Method Room Air Room Air Weight Weight: 182 lb 15.739 oz Body Mass Index (BMI) 32.4 Physical Exam Const alert and oriented x3 HEENT normocephalic Eyes PERRL Resp normal respiratory effort and normal air movement Cardio regular rate and regular rhythm GI soft to palpation, non-tender and non-distended Extremity normal to inspection Assessment & Plan Assessment/Plan (1) Family history of colon cancer in mother: PLAN: She was fine alternatives, risk, benefits include not withstanding bleeding, infection, sepsis, perforation, need for emergent urgent . She will have an ASA of 3.
--- NOTE | 2024-09-23 12:55 | OP.COLON_ITS ---
Patient Name: Jessica Mejia Procedure Date: 09/23/2024 12:10 PM Date of : 1965 Age: 59 Procedure: Colonoscopy Indications: Screening for colorectal malignant neoplasm Providers: Rupert Garay DO Medicines: Monitored Anesthesia Care Patient Profile: This is a 59 year old female. Refer to note in patient chart for documentation of history and physical. Last Colonoscopy: 6 months ago. Complications: No immediate complications. Procedure: Pre-Anesthesia Assessment: - Prior to the procedure, a History and Physical was performed, and patient medications and allergies were reviewed. The patient is competent. The risks and benefits of the procedure and the sedation options and risks were discussed with the patient. All questions were answered and informed consent was obtained. Patient identification and proposed procedure were verified by the physician in the pre-procedure area. Mental Status Examination: alert and oriented. Airway Examination: normal oropharyngeal airway and neck mobility. Respiratory Examination: clear to auscultation. CV Examination: normal. Prophylactic Antibiotics: The patient does not require prophylactic antibiotics. Prior Anticoagulants: The patient has taken no anticoagulant or antiplatelet agents except for NSAID medication. ASA Grade Assessment: II - A patient with mild systemic disease. After reviewing the risks and benefits, the patient was deemed in satisfactory condition to undergo the procedure. The anesthesia plan was to use monitored anesthesia care (MAC). Immediately prior to administration of medications, the patient was re-assessed for adequacy to receive sedatives. The heart rate, respiratory rate, oxygen saturations, blood pressure, adequacy of pulmonary ventilation, and response to care were monitored throughout the procedure. The physical status of the patient was re-assessed after the procedure. After I obtained informed consent, the scope was passed under direct vision. Throughout the procedure, the patient's blood pressure, pulse, and oxygen saturations were monitored continuously. The colonoscope was introduced through the anus and advanced to the cecum, identified by the appendiceal orifice, ileocecal valve and palpation. The colonoscopy was performed without difficulty. The patient tolerated the procedure well. The quality of the bowel preparation was adequate. The terminal ileum, ileocecal valve, appendiceal orifice, and rectum were photographed. Scope In: 12:32:22 PM Scope Withdrawal Time 0 hours 9 minutes 41 seconds Scope Out: 12:47:33 PM Total Procedure Duration Time 0 hours 15 minutes 11 seconds Findings: The perianal and digital rectal examinations were normal. A 9 mm polyp was found in the ascending colon. The polyp was sessile. The polyp was removed with a hot snare. Resection and retrieval were complete. Verification of patient identification for the specimen was done. Estimated blood loss was minimal. Impression: - One 9 mm polyp in the ascending colon, removed with a hot snare. Resected and retrieved. Recommendation: - Repeat colonoscopy in 5 years for surveillance. - Continue present medications. Procedure Code(s): --- Professional --- 34905, Colonoscopy, flexible; with removal of tumor(s), polyp(s), or other lesion(s) by snare technique CPT copyright 2021 [employer]. All rights reserved. The codes documented in this report are preliminary and upon silverware etcher review may be revised to meet current compliance requirements. Rupert Garay DO 09/23/2024 12:54:35 PM This report has been signed electronically. Number of Addenda: 0 Note Initiated On: 09/23/2024 12:10 PM
--- NOTE | 2024-09-23 12:55 | OP.CCLET_ITS ---
09/23/2024 Westley Tse MD [address] [place] [address] [place] [address] Re : Colonoscopy procedure for Jessica Mejia Dear Dr. Tse This procedure was performed on Monday, September 23, 2024. My impressions and recommendations are as follows: Impressions : - One 9 mm polyp in the ascending colon, removed with a hot snare. Resected and retrieved. Recommendations : - Repeat colonoscopy in 5 years for surveillance. - Continue present medications. My findings are described in the full procedure note, which is enclosed. If I can be of further assistance, please feel free to contact me at . Sincerely, Rupert Garay, 09/23/2024 12:54:35 PM This report has been signed electronically.
--- NOTE | 2024-09-23 12:58 | PCM.POST.ANE ---
Anesthesia: Postop Eval I Current Vital Signs Temperature: 97 F Pulse Rate: 64 Blood Pressure: 92/63 Respiratory Rate: 16 Pulse Ox: 97 Oxygen Delivery Method: Room Air Assessment Airway patent: Yes Spontaneous unlabored respirations: Yes Mental status: Asleep nausea: No Vomiting: No Anesthesia Complication: No Fluid Hydration Crystalloid volume administer (ml): 40 Total IV fluid infused: 40 Progress Note Anesthesia document: Postop Eval 1 completed: Yes
--- NOTE | 2024-09-23 16:49 | PCM.POSTANE2 ---
Anesthesia Postop Eval I Sum Postop Eval Completion status Anesthesia document: Postop Eval 1 completed: Yes Anesthesia Postop Eval I Summary Anesthesia Postop Eval I Summary: Anesthesia Postop Eval I: Assessment Summary Airway patent Yes 09/23/24 12:59 [email or web address] Spontaneous unlabored Yes 09/23/24 12:59 [email or web address] respirations Mental status Asleep 09/23/24 12:59 [email or web address] nausea No 09/23/24 12:59 [email or web address] Vomiting No 09/23/24 12:59 [email or web address] Anesthesia Postop Eval I: Fluid Summary Crystalloid volume administer 40 09/23/24 12:59 [email or web address] (ml) Colloids volume administered ( ml) Blood Product volume administered (ml) Total IV fluid infused 40 09/23/24 12:59 [email or web address] Anesthesia Postop Eval I: Summary Notes Anesthesia Complication No 09/23/24 12:59 [email or web address] Anesthesia Complication Comment: Post-operative progress note Anesthesia: Postop Eval II Evaluation Mental status: Awake and Calm Pain Level: 0 nausea: No Vomiting: No Complications Anesthesia Complication: No
== END 2024-09-23 13:28 | disposition home or self-care (01) ==
LOC: EN 10:55 → AC 10:56
PROVIDERS: PCP Internal Medicine; Referring Provider Internal Medicine; Visit Provider Internal Medicine Gastroenterology
PROC: 0DJD8ZZ Inspection of Lower Intestinal Tract, Via Natural or Artificial Opening Endoscopic (ICD-10-PCS; CPT 45378; principal; 2024-09-23 11:55)
DX: Z12.11 Encounter for screening for malignant neoplasm of colon (principal); K63.5 Polyp of colon; Z80.0 Family history of malignant neoplasm of digestive organs; F17.200 Nicotine dependence, unspecified, uncomplicated; Z90.49 Acquired absence of other specified parts of digestive tract
CPT/HCPCS: 45385; 88305; J2405

== ENCOUNTER → 2024-12-28 | Outpatient (CLI) | payer MEDICAID, SELFPAY ==
[2025-01-01 12:08] LABS: HPV APTIMA, High Risk Negative (Negative)
== END | disposition home or self-care (01) ==
LOC: LABSPEC 15:11
PROVIDERS: PCP Internal Medicine; Referring Provider Nurse Practitioner Women's Health; Visit Provider Nurse Practitioner Women's Health
DX: Z12.4 Encounter for screening for malignant neoplasm of cervix (principal)
CPT/HCPCS: 87624; 88175; G0145

== ENCOUNTER → 2025-03-31 | Outpatient (CLI) | payer MEDICAID, SELFPAY ==
[2025-03-31 12:56] LABS: Absolute Lymphocyte Count 2.61 X10^3/uL (0.83-4.51); Absolute Neutrophil Count 4.3 X10^3/uL (2.0-7.7); Basophil# 0.07 X10^3/uL; Basophil% 0.9 % (0-1); Eosinophil# 0.17 X10^3/uL; Eosinophils% 2.2 % (0-5); Hematocrit 44.6 % (37-47); Hemoglobin 14.7 g/dL (12.0-15.0); Lymphocyte # 2.61 X10^3/ul (0.83-4.51); Lymphocyte % 33.5 % (19-41); Mean Corpuscular Hgb 30.1 pg (27.0-32.0); Mean Corpuscular Volume 91.4 fL (81-99); Mean Platelet Vol. 12.7 fl (6.2-12.0); Monocyte# 0.64 X10^3/uL; Monocyte% 8.2 % (0-10); NRBC Flagged by Analyzer 0 % (0-5); Neutrophil # 4.27 X10^3/uL (2.7-7.7); Neutrophil % 54.8 % (47-70); Platelet Count 228 K/mm3 (150-450); RBC Distribution Width CV 13.2 % (11.6-14.6); RBC Distribution Width SD 43.7 fl (35.1-43.9); Red Blood Count 4.88 M/mm3 (4.2-5.4); White Blood Count 7.8 K/mm3 (4.4-11.0)
[2025-03-31 13:43] LABS: ALB/GLOB Ratio 1.3 RATIO (0.9-2.4); AST(SGOT) 23 U/L (<=31); Alanine Aminotransfer ALT/SGPT 19 U/L (<=34); Albumin, Serum 4.6 g/dL (3.5-5.0); Alkaline Phosphatase 90 U/L (35-104); Anion Gap 12 (5-15); BUN 15 mg/dL (4-19); BUN/Creat Ratio 16.7 RATIO (10-20); Calcium,Total 10.3 mg/dL (7.6-11.0); Chloride 103 mmol/L (98-108); Cholesterol 250 mg/dL (<=200); Creatinine, Serum 0.92 mg/dL (0.70-1.20); EST Glomerular Filtration Rate 72 (>60); Globulin 3.5 g/dL (2.2-4.2); Glucose 100 mg/dL (70-99); High Density Lipoprotein 73 mg/dL; Low Density Lipoprotein Calc. 155 mg/dL; Potassium 4.6 mmol/L (3.3-5.1); Protein, Total 8.1 g/dL (5.9-8.4); Sodium Level 140 mmol/L (133-145); Triglycerides 107 mg/dL; Very Low Density Lipoprotein 21 mg/dL (5-40); cholesterol:hdl ratio screen 3.42
== END | disposition home or self-care (01) ==
LOC: BIMLAB 09:26
PROVIDERS: PCP Internal Medicine; Referring Provider Internal Medicine; Visit Provider Internal Medicine
DX: Z00.00 Encounter for general adult medical examination without abnormal findings (principal)
CPT/HCPCS: 36415; 80053; 80061; 85025